=== PATIENT | male | born 1950 | race Caucasian/White ===

== ENCOUNTER 2018-05-04 19:40 | Emergency (ER) | payer OTHER, MEDICARE ==
[2018-05-04 19:55] VITALS: BP 122/73
--- NOTE | 2018-05-04 21:53 | ED GENERAL ADULT ---
History of Present Illness General Chief Complaint: General Adult Stated Complaint: NEEDS MED REFILL Source: patient Exam Limitations: no limitations Vital Signs & Intake/Output Vital Signs & Intake/Output Vital Signs Date Time Temp Pulse Resp B/P B/P Pulse O2 O2 Flow FiO2 Mean Ox Delivery Rate 05/04 1955 97.0 96 20 122/73 96 Room Air Allergies Coded Allergies: MDX - Atropine (From Atropine Sulfate) (04/30/98) Reconcile Medications Metformin HCl 500 MG TABLET 2 TAB PO BID DM (Reported) Triage Note: PER PT HERE VISITING FROM [place], PT REPORTS HE NEEDS KENALOG IM A STEROID D/T OTHER STEROIDS RAISING SUGAR. PT 99% SURE THAT IS NAME OF MED Triage Nurses Notes Reviewed? yes Onset: Abrupt Duration: day(s): Timing: recent history HPI: 68-year-old male comes in requesting a shot of Kenalog IM. Patient reports that he gets 1 every 3 months by his doctor for his chronic asthma and COPD. He comes from [place]. He is currently visiting here. He denies getting other IM steroids and reports that it's Kenalog. Denies any pain. Denies any other associated symptoms. Patient is strictly here for injection alone. (Kelvin Osman) Past History Travel History Traveled to [place] past 21 day No Medical History Any Pertinent Medical History? see below for history Neurological: NONE EENT: NONE Cardiovascular: NONE Respiratory: asthma, COPD Gastrointestinal: NONE Hepatic: NONE Renal: NONE Musculoskeletal: NONE Psychiatric: NONE Endocrine: NONE Surgical History Surgical History: non-contributory Psychosocial History What is your primary language Liberian Tobacco Use: Never used Family History Hx Contributory? No (Kelvin Osman) Review of Systems Review of Systems Constitutional: Reports: no symptoms. EENTM: Reports: no symptoms. Respiratory: Reports: no symptoms. Cardiovascular: Reports: no symptoms. GI: Reports: no symptoms. Genitourinary: Reports: no symptoms. Musculoskeletal: Reports: no symptoms. Skin: Reports: no symptoms. Neurological/Psychological: Reports: no symptoms. Hematologic/Endocrine: Reports: no symptoms. Immunologic/Allergic: Reports: no symptoms. All Other Systems: Reviewed and Negative (Kelvin Osman) Physical Exam Physical Exam General Appearance: well developed/nourished, no apparent distress, alert, awake Head: atraumatic Eyes: Bilateral: normal appearance. Ears, Nose, Throat: normal ENT inspection Neck: normal inspection Respiratory: no respiratory distress Extremities: normal range of motion Neurologic/Psych: awake, alert, oriented x 3 Skin: intact, normal color Core Measures ACS in differential dx? No CVA/TIA Diagnosis: No Sepsis Present: No Sepsis Focused Exam Completed? No (Kelvin Osman) Progress Differential Diagnoses I considered the following diagnoses in my evaluation of the patient: Asthma, bronchitis, COPD, Plan of Care: Current Medications Sig/Eli Start time Last Medication Dose Stop Time Status Admin Triamcinolone 40 MG ONCE ONE 05/04 2200 UNVr Acetonide 05/04 2201 (Kenalog Injection) Initial ED EKG: none (Kelvin Osman) Departure Departure Disposition: HOME OR SELF CARE Condition: Stable Clinical Impression Primary Impression: Asthma Referrals: Unknown (PCP) Additional Instructions: Follow-up with your primary care doctor. Return if any concerns worsening symptoms. Please go over all results of today's visit with your primary care doctor. Contact your primary care doctor to let them know you were here in the emergency room. There may be nonspecific findings which may not be related to your visit today here in the emergency room but may require further evaluation and chronic monitoring by your primary care doctor. If you had a laceration today the chance of foreign body always remains. You should follow-up with your primary care doctor for recheck in 3-5 days for a wound check. If you had an x-ray done there is a chance that a fracture could have been missed on initial read and you should follow-up with your primary care doctor for repeat x-rays if symptoms persist. If your blood pressure was elevated here in the emergency room please have rechecked by [facility] primary care doctor within the next 48. If you were prescribed a narcotic here in the emergency room or any type of controlled substances you're not allowed to drive while taking this medication or operate any type of heavy machinery. Narcotics can make you feel lightheaded dizziness nausea and can cause constipation. You may need to hop picker a stool softener. Thank you for choosing [facility] emergency room. Please return to the emergency room immediately if you have any other concerns worsening of symptoms. Departure Forms: Customer Survey General Discharge Information Comments 05/05/2018 12:59:23 AM Patient was given an IM dose. Discharged. Follow-up with PCP. (Kelvin Osman) PA/CLINICAL AUDIOLOGIST Co-Sign Statement Statement: ED Attending supervision documentation- [] I saw and evaluated the patient. I have also reviewed all the pertinent lab results and diagnostic results. I agree with the findings and the plan of care as documented in the PA's/CLINICAL AUDIOLOGIST's documentation. [X] I have reviewed the ED Record and agree with the PA's/CLINICAL AUDIOLOGIST's documentation. [] Additions or exceptions (if any) to the PAs/CLINICAL AUDIOLOGIST's note and plan are summarized below: [] (Soha GONZALEZ,Sudhakar Ott) Critical Care Note Critical Care Note Critical Care Time: non-applicable (Kelvin Osman)
[2018-05-04] MEDS ORDERED: METFORMIN HCL500 M3 PO (22:15)
== END 2018-05-04 22:16 ==
LOC: ERH 19:40
DX: J45.909 Unspecified asthma, uncomplicated (principal); E11.9 Type 2 diabetes mellitus without complications; Z79.84 Long term (current) use of oral hypoglycemic drugs
CPT/HCPCS: 96372